=== PATIENT | male | born 1990 | race Caucasian/White ===

== ENCOUNTER 2016-07-01 09:01 | Emergency (ER) | payer MEDICARE, MEDICAID ==
[~2016-07-01] VITALS: Ht 188 cm; Wt 77.1 kg
[~2016-07-01 09:01] MED LIST: DEXT15CA2 PO; FLUO20CA25 PO; HYDR-3714 PO; MUPI1OIN5 NS; OMEP20TA2 PO
[2016-07-01] MEDS ORDERED: FLUO20CA42 PO (09:22)
[2016-07-01] MEDS ORDERED: MMT17NA NS (09:22)
--- NOTE | 2016-07-01 09:49 | Diagnostic Imaging Report ---
INDICATION: Left foot pain. TECHNIQUE: AP, oblique, and lateral views of the left foot were obtained. FINDINGS: There are tiny calcifications lateral to the cuboid which are of uncertain age and may be tiny avulsions or developmental change. There is no other definite bony abnormality. IMPRESSION: Small calcifications are present lateral to the cuboid. These may represent tiny avulsions but are of uncertain age. These could be developmental. Correlate for point tenderness in this area. Dictated by: Dictated on workstation # [id number]
--- NOTE | 2016-07-01 10:40 | ED Lower Extremity ---
General Chief Complaint: Lower Extremity Stated Complaint: FALL/LEFT FOOT INJURY Nursing Triage Note: ARRIVED VIA AMB LIMPING. STATES HE FELL LAST NIGHT TAKING OUT THE TRASH CAUSING PAIN TO LEFT ANKLE AND FOOT. Nursing Sepsis Screen: No Definite Risk Source: patient, family Exam Limitations: no limitations History of Present Illness Time seen by provider: 09:30 Initial Comments Here with report of left ankle pain after tripping going up a step today. He caught himself with his left foot and felt pain. He is unable to walk on the left foot. Complains of swelling to the lateral aspect. No abrasions or lacerations noted. No other injuries noted or reported. Onset: this morning Severity: moderate Pain/Injury Location: left foot, left ankle Method of Injury: direct blow, twisted Modifying Factors: Improves With Immobilization, Worse With Movement Allergies and Home Medications Allergies Uncoded Allergies: PCN (Allergy, Unknown, 02/28/14) Home Medications D-Amphetamine Sulfate 15 Mg Capsule.sa, 15 MG PO DAILY, (Reported) Fluoxetine HCl 20 Mg Capsule, 20 MG PO DAILY, (Reported) Mometasone Furoate 17 Gm Naspr, 17 GM NS, (Reported) Constitutional: see HPI, No chills, No fever Cardiovascular: no symptoms reported Gastrointestinal: no symptoms reported Musculoskeletal: see HPI, joint pain, joint swelling, muscle pain Skin: no symptoms reported Past Ggtyitm-Eegjzl-Lpzwsz Hx Patient Social History Alcohol Use: Denies Use Recreational Drug Use: No Smoking Status: Never a Smoker Recent Foreign Travel: No Contact w/Someone Who Travel: No Recent Infectious Disease Expo: No Recent Hopitalizations: No Immunizations Up To Date Date of Influenza Vaccine: Dec 18, 2012 Surgeries HX Surgeries: Yes Surgeries: Tonsillectomy Respiratory Hx Respiratory Disorders: No Cardiovascular Hx Cardiac Disorders: No Neurological Hx Neurological Disorders: No Genitourinary Hx Genitourinary Disorders: No Gastrointestinal Hx Gastrointestinal Disorders: No Musculoskeletal Hx Musculoskeletal Disorders: No Endocrine Hx Endocrine Disorders: No HEENT HX ENT Disorders: No Psychosocial Hx Psychiatric Problems: Yes (ASBURGERS) Behavioral Health Disorders: ADD/ADHD, ODD Blood Transfusions Hx Blood Disorders: No Reviewed Nursing Assessment Reviewed/Agree w Nursing PMH: Yes Physical Exam Vital Signs Vital Sign - Last 12Hours 07/01/16 09:15 Temp 98.0 Pulse 78 Resp 18 B/P (MAP) 117/92 Pulse Ox 98 Capillary Refill : Less Than 3 Seconds General Appearance: WD/WN, no apparent distress Cardiovascular: regular rate, rhythm, no murmur Respiratory: lungs clear, normal breath sounds Ankles: left ankle pain, left ankle soft tissue tenderness, left ankle swelling , left ankle other (all findings on the lateral aspect) Feet: left foot pain, left foot soft tissue tenderness, left foot swelling, left foot other (all findings on the lateral aspect) Neurologic/Psychiatric: alert, oriented x 3 Skin: warm/dry, ecchymosis (lateral ankle/foot) Progress/Results/Core Measures Results/Orders My Orders Orders - OLE RAI MD Ankle, Left, 3 Views (07/01/16 09:24) Foot, Left, 3 Views (07/01/16 09:24) Vital Signs/I&O Vital Sign - Last 12Hours 07/01/16 09:15 Temp 98.0 Pulse 78 Resp 18 B/P (MAP) 117/92 Pulse Ox 98 Blood Pressure Mean: 100 Progress Note : Progress Note Seen and evaluated. X-ray of left foot and ankle. Patient declines pain medicine. Crutches and boot to left foot ordered. Discharged home with return precautions. Mother verbalize understanding instructions and agreement with plan. Diagnostic Imaging Diagonstic Imaging: Xray Plain Films/CT/US/NM/MRI: other (foot) Comments VIA [facility]. [place], [place] NAME: DARYL DELAROSA [facility] REC#: [id number] PT STATUS: REG ER : 1990 PHYSICIAN: OLE RAI MD ADMIT DATE: 07/01/16/ER Draft Date of Exam:07/01/16 FOOT, LEFT, 3 VIEWS INDICATION: Left foot pain. TECHNIQUE: AP, oblique, and lateral views of the left foot were obtained. FINDINGS: There are tiny calcifications lateral to the cuboid which are of uncertain age and may be tiny avulsions or developmental change. There is no other definite bony abnormality. IMPRESSION: Small calcifications are present lateral to the cuboid. These may represent tiny avulsions but are of uncertain age. These could be developmental. Correlate for point tenderness in this area. Dictated on workstation # [id number] Dict: 07/01/16 0944 Trans: 07/01/16 0949 [id number] Interpreted by: LUX PADILLA MD Electronically signed by: Departure Impression Impression: Primary Impression: Strain of ankle and foot Qualified Codes: S96.912A - Strain of unspecified muscle and tendon at ankle and foot level, left foot, initial encounter Additional Impression: Closed avulsion fracture of metatarsal bone of left foot Qualified Codes: S92.302A - Fracture of unspecified metatarsal bone(s), left foot, initial encounter for closed fracture Disposition: HOME, SELF-CARE Condition: Stable Departure-Patient Inst. Decision time for Depature: 10:40 Referrals: NIGHAT RAZA MD, RICHARD A DO (PCP/Family) Primary Care Physician CHRIS WHITEHEAD MD, ROBERT F DO ZAFUTA, MICHAEL P MD Patient Instructions: Ankle Sprain (DC) Add. Discharge Instructions: All discharge instructions reviewed with patient and/or family. Voiced understanding. You may use ice packs to area of concern 20 minutes per hour as needed for the next couple days. Use walking boot and crutches as needed for the next few days. Follow-up with orthopedic physician of your choice if not improved over the next few days. Return for worse pain, swelling, numbness or tingling to the feet or other concerns as needed. You may take ibuprofen 600 mg every 8 hours as needed for pain. You may take Tylenol 1000 mg every 8 hours as needed for pain as well. OLE RAI MD Jul 01, 2016 10:40
[2016-07-01 11:26] VITALS: BP 117/92
--- NOTE | 2016-07-04 09:22 | Diagnostic Imaging Report ---
INDICATION: Left ankle injury 3 views of the left ankle show no fracture, dislocation or other acute abnormalities. IMPRESSION: Negative left ankle Dictated by: Dictated on workstation # [id number]
== END 2016-07-01 11:26 | disposition home or self-care (01) ==
LOC: EDUNIT# 09:01 → ER 09:03
DX: S92.812A Other fracture of left foot, initial encounter for closed fracture (principal); S96.912A Strain of unspecified muscle and tendon at ankle and foot level, left foot, initial encounter; W10.9XXA Fall (on) (from) unspecified stairs and steps, initial encounter; Y92.009 Unspecified place in unspecified non-institutional (private) residence as the place of occurrence of the external cause; Y99.8 Other external cause status
CPT/HCPCS: 73610; 73630; 99283

== ENCOUNTER 2018-02-21 05:41 | Outpatient (CLI) | payer MEDICARE, MEDICAID ==
[~2018-02-21] VITALS: Ht 188 cm; Wt 80.7 kg
[~2018-02-21 05:41] MED LIST changes: +FLUO20CA42 PO; +MMT17NA NS
[2018-02-21] MEDS ORDERED: MONT10TA21 PO (11:57)
[2018-02-21] MEDS ORDERED: DEXT10CA2 PO (11:57)
== END 2018-02-21 12:00 | disposition home or self-care (01) ==
LOC: PREOP 05:41
PROVIDERS: ATTEND Surgery
DX: Z01.818 Encounter for other preprocedural examination (principal)

== ENCOUNTER 2018-02-28 09:55 | Day surgery (SDC) | payer MEDICARE, MEDICAID ==
[~2018-02-28] VITALS: Ht 188 cm; Wt 80.7 kg
[~2018-02-28 09:55] MED LIST changes: +DEXT10CA2 PO; +MONT10TA21 PO
--- OUTSIDE RECORDS SUMMARY | 2018-02-28 09:59 | XMS REPORT ---
Author Author JIL JONES Organization [facility] IN [facility] Address [address] [place] [address] Care Team Providers Care Bounty Hunter Name Role Phone JIL JONES Unavailable PROBLEMS Type Condition ICD9-CM Code OSW14-SC Code Onset Dates Condition Status SNOMED Code Problem Attention deficit disorder of childhood without mention of hyperactivity 314.00 Active 06847757 ALLERGIES Substance Reaction Event Type Date Status Penicillins diarrhea Non Drug Allergy Feb, Active SOCIAL HISTORY No smoking Hx information available PLAN OF CARE Activity Details Follow Up prn Reason: VITAL SIGNS Height 72 in 2016-02-28 Weight 173.0 lbs 2016-02-28 Temperature 98.4 degrees Fahrenheit 2016-02-28 Heart Rate 80 bpm 2016-02-28 Respiratory Rate 20 2016-02-28 BMI 23.46 kg/m2 2016-02-28 Blood pressure systolic 104 mmHg 2016-02-28 Blood pressure diastolic 68 mmHg 2016-02-28 MEDICATIONS Medication Instructions Dosage Frequency Start Date End Date Duration Status Naproxen 500 MG Orally every 12 hrs 1 tablet as needed 12h Feb, Feb, 10 days Active Nasonex 50 MCG/ACT Nasally Once a day 2 sprays in each nostril 24h Mar, 30 day(s) Active Dexedrine Spansule 15 mg orally- Ledy to sign for Huerter once a day - 1 capsule Feb, Active Clindamycin HCl 150 MG Orally every 6 hrs 2 capsules 6h Feb, Feb, 7 days Active Prozac 20 MG Orally Once a day 1 capsule in the morning 24h Active RESULTS No Results PROCEDURES Procedure Date Ordered Related Diagnosis Body Site [facility] VISIT ESTABLISHED PATIENT Feb 28, 2016 Office Visit, Est Pt., Level 3 Feb 28, 2016 IMMUNIZATIONS No Known Immunizations
[2018-02-28 10:00] VITALS: BP 126/85
--- OUTSIDE RECORDS SUMMARY | 2018-02-28 10:00 | XMS REPORT | Continuity of Care Document ---
Author Author [facility] Address Unknown Phone Unavailable Allergies Active Description Code Type Severity Reaction Onset Reported/Identified Relationship to Patient Clinical Status Yes Penicillins Drug Allergy 12/24/2011 Yes Penicillins Drug Allergy N/A N/A 12/24/2011 Yes PCN PCN Unknown N/ A 02/28/2014 Yes Penicillins [id number] Drug Allergy Mild RASH 02/21/2018 Medications There is no data. Problems Date Dx Coded Attending Type Code Diagnosis Diagnosed By 02/04/2010 299.80 DV ASPERGERS 02/04/2010 311 DEPRESSIVE DISORDER NOS 02/04/2010 314.01 ADHD COMBINED 02/04/2010 299.80 DV ASPERGERS 02/04/2010 311 DEPRESSIVE DISORDER NOS 02/04/2010 314.01 ADHD COMBINED 02/04/2010 299.80 DV ASPERGERS 02/04/2010 311 DEPRESSIVE DISORDER NOS 02/04/2010 314.01 ADHD COMBINED 02/04/2010 WHITE DDS, JOSUE J 299.80 DV ASPERGERS 02/04/2010 WHITE DDS, JOSUE J 311 DEPRESSIVE DISORDER NOS 02/04/2010 WHITE DDS, JOSUE J 314.01 ADHD COMBINED 02/04/2010 JORDYN MARTIN APRN 299.80 DV ASPERGERS 02/04/2010 JORDYN MARTIN APRN 311 DEPRESSIVE DISORDER NOS 02/04/2010 JORDYN MARTIN APRN 314.01 ADHD COMBINED 02/04/2010 JORDYN MARTIN APRN 299.80 DV ASPERGERS 02/04/2010 JORDYN MARTIN APRN 311 DEPRESSIVE DISORDER NOS 02/04/2010 JORDYN MARTIN APRN 314.01 ADHD COMBINED 02/04/2010 299.80 DV ASPERGERS 02/04/2010 311 DEPRESSIVE DISORDER NOS 02/04/2010 314.01 ADHD COMBINED 02/04/2010 SANTOSH 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, KAVIN 299.80 DV ASPERGERS 02/04/2010 SANTOSH MICHAEL KAVIN 311 DEPRESSIVE DISORDER NOS 02/04/2010 KAVIN FROST APRN 314.01 ADHD COMBINED 05/07/2010 296.32 MO DEPRESSIVE RECURRENT MODERATE 05/07/2010 296.32 MO DEPRESSIVE RECURRENT MODERATE 05/07/2010 296.32 MO DEPRESSIVE RECURRENT MODERATE 05/07/2010 JOSUE TRONCOSO DDS 296.32 MO DEPRESSIVE RECURRENT MODERATE 05/07/2010 JORDYN MARTIN APRN 296.32 MO DEPRESSIVE RECURRENT MODERATE 05/07/2010 JORDYN MARTIN APRN 296.32 MO DEPRESSIVE RECURRENT MODERATE 05/07/2010 296.32 MO DEPRESSIVE RECURRENT MODERATE 05/07/2010 KAVIN FROST APRN 296.32 MO DEPRESSIVE RECURRENT MODERATE 09/22/2010 299.00 AUTISTIC DISORDER CURRENT OR ACTIVE STATE 09/22/2010 299.00 AUTISTIC DISORDER CURRENT OR ACTIVE STATE 09/22/2010 299.00 AUTISTIC DISORDER CURRENT OR ACTIVE STATE 09/22/2010 JOSUE TRONCOSO DDS 299.00 AUTISTIC DISORDER CURRENT OR ACTIVE STATE 09/22/2010 JORDYN MARTIN APRN 299.00 AUTISTIC DISORDER CURRENT OR ACTIVE STATE 09/22/2010 JORDYN MARTIN APRN 299.00 AUTISTIC DISORDER CURRENT OR ACTIVE STATE 09/22/2010 299.00 AUTISTIC DISORDER CURRENT OR ACTIVE STATE 09/22/2010 KAVIN FROST APRN 299.00 AUTISTIC DISORDER CURRENT OR ACTIVE STATE 12/23/2010 300.02 AN GEN ANXIETY 12/23/2010 300.02 AN GEN ANXIETY 12/23/2010 300.02 AN GEN ANXIETY 12/23/2010 JOSUE TRONCOSO DDS 300.02 AN GEN ANXIETY 12/23/2010 JORDYN MARTIN APRN 300.02 AN GEN ANXIETY 12/23/2010 JORDYN MARTIN APRN 300.02 AN GEN ANXIETY 12/23/2010 300.02 AN GEN ANXIETY 12/23/2010 KAVIN FROST APRN 300.02 AN GEN ANXIETY 09/23/2011 314.00 ADHD INATTENTIVE 09/23/2011 314.00 ADHD INATTENTIVE 09/23/2011 314.00 ADHD INATTENTIVE 09/23/2011 JOSUE TRONCOSO DDS 314.00 ADHD INATTENTIVE 09/23/2011 JORDYN MARTIN APRN 314.00 ADHD INATTENTIVE 09/23/2011 JORDYN MARTIN APRN 314.00 ADHD INATTENTIVE 09/23/2011 314.00 ADHD INATTENTIVE 09/23/2011 KAVIN FROST APRN 314.00 ADHD INATTENTIVE 03/20/2013 MERRICK CHRISTIANSON, VICTORINA Gutierrez Ot 211.4 BENIGN NEOPL RECTUM/ANUS 03/20/2013 MERRICK CHRISTIANSON, VICTORINA Gutierrez Ot V18.51 FAMILY HISTORY, COLONIC POLYPS 02/28/2014 MERRICK CHRISTIANSON, VICTORINA Gutierrez Ot 211.4 BENIGN NEOPL RECTUM/ANUS 02/28/2014 MERRICK CHRISTIANSON, VICTORINA Gutierrez Ot 706.2 SEBACEOUS CYST 07/01/2016 MERRICK CHRISTIANSON, VICTORINA Gutierrez Ot V72.84 EXAM PRE-OPERATIVE NOS 07/01/2016 MERRICK CHRISTIANSON, VICTORINA Gutierrez Ot V72.84 EXAM PRE-OPERATIVE NOS 07/01/2016 MERRICK CHRISTIANSON, VICTORINA Gutierrez Ot V72.84 EXAM PRE-OPERATIVE NOS 07/01/2016 OLE RAI MD, Ot S92.812A OTHER FRACTURE OF LEFT FOOT, INIT 07/01/2016 OLE RAI MD Ot S96.912A STRAIN OF UNSP MSL/TND AT ANK/FT LEVEL, 07/01/2016 OLE RAI MD, Ot S99.922A UNSPECIFIED INJURY OF LEFT FOOT, INITIAL 07/01/2016 OLE RAI MD Ot W10.9XXA FALL (ON) (FROM) UNSPECIFIED STAIRS AND 07/01/2016 OLE RAI MD Ot Y92.[address] IN [facility] 07/01/2016 OLE RAI MD Ot Y99.8 OTHER EXTERNAL CAUSE STATUS 07/03/2016 OLE RAI MD Ot S92.812A OTHER FRACTURE OF LEFT FOOT, INIT 07/03/2016 OLE RAI MD Ot S96.912A STRAIN OF UNSP MSL/TND AT ANK/FT LEVEL, 07/03/2016 OLE RAI MD Ot S99.922A UNSPECIFIED INJURY OF LEFT FOOT, INITIAL 07/03/2016 OLE RAI MD Ot W10.9XXA FALL (ON) (FROM) UNSPECIFIED STAIRS AND 07/03/2016 OLE RAI MD Ot Y92.[address] [facility] 07/03/2016 CECELIA CHRISTIANSON, OLE Hancock Ot Y99.8 OTHER EXTERNAL CAUSE STATUS 02/21/2018 MERRICK CHRISTIANSON, VICTORINA Gutierrez Ot Z01.818 ENCOUNTER FOR OTHER PREPROCEDURAL EXAMIN 02/22/2018 VICTORINA SIN MD Ot Z01.818 ENCOUNTER FOR OTHER PREPROCEDURAL EXAMIN Procedures Code [place] [address] PSYCH IND W/MED CK 20 01/01/2012 Results There is no data. Encounters ACCT No. Visit Date/Time Discharge Status Pt. Type Provider Facility Loc./Unit Complaint [id number] 03/13/2014 11:40:00 03/13/2014 23:59:59 CLS Outpatient KAVIN FROST APRN [id number] 09/08/2013 13:41:00 09/08/2013 23:59:59 CLS Outpatient MARIO RODRIGUEZ JORDYN EPHRAIM [id number] 06/09/2013 13:45:00 06/09/2013 23:59:59 CLS Outpatient MARIO RODRIGUEZ JORDYN EPHRAIM [id number] 02/17/2013 00:00:00 02/17/2013 23:59:59 CLS Outpatient JOSUE TRONCOSO DDS [id number] 03/25/2012 09:40:00 03/25/2012 23:59:59 CLS Outpatient [id number] 12/24/2011 09:49:00 12/24/2011 23:59:59 CLS Outpatient [id number] 09/27/2012 13:51:00 Document Registration [id number] 06/23/2012 09:34:00 Document Registration [id number] 02/21/2018 05:41:00 02/21/2018 12:00:00 DIS Outpatient VICTORINA SIN MD [facility] PREOP COLONOSCOPY [id number] 07/01/2016 09:03:00 07/01/2016 11:26:00 DIS Emergency OLE RAI MD [facility] ER FALL/LEFT FOOT INJURY [id number] 02/28/2014 08:43:00 02/28/2014 13:35:00 DIS Outpatient VICTORINA SIN MD [facility] SDC RECTAL BLEEDING; HX POLYPS; SEBACEOUS CYST [id number] 02/22/2014 14:46:00 02/22/2014 23:59:59 CLS Outpatient VICTORINA SIN MD [facility] PREOP RECTAL BLEEDING; HX POLYPS; SEBACEOUS CYST [id number] 02/21/2014 06:08:00 02/21/2014 23:59:59 CLS Outpatient VICTORINA SIN MD [facility] PREOP RECTAL BLEEDING; HX POLYPS [id number] 03/20/2013 07:01:00 03/20/2013 10:32:00 DIS Outpatient VICTORINA SIN MD [facility] SDC BLOOD IN STOOL [id number] 03/16/2013 09:28:00 03/16/2013 23:59:59 CLS Outpatient VICTORINA SIN MD [facility] PREOP BLOOD IN STOOL [id number] 02/28/2018 11:30:00 PEN Preadmit VICTORINA SIN MD [facility] ENDO BLOOD IN STOOLS/HX POLYPS [id number] 02/28/2014 08:43:32 ACT Document Registration
[2018-02-28] MEDS ORDERED: NS IV 500 ML 500 ML IV PRN (10:06)
[2018-02-28] MEDS ORDERED: NS IV 500 ML 500 ML ONE (10:10)
[2018-02-28] MEDS ORDERED: MIDAZOLAM 2 MG/2 ML (VERSED) VIAL IVP ONE (10:15)
[2018-02-28] MEDS ORDERED: fentaNYL INJECTION 100 MCG/2 ML AMP IVP ONE (10:15)
[2018-02-28] MEDS ORDERED: fentaNYL INJECTION 100 MCG/2 ML AMP ONE (10:21)
[2018-02-28] MEDS ORDERED: MIDAZOLAM 2 MG/2 ML (VERSED) VIAL ONE ×5 (10:21→11:12)
--- NOTE | 2018-02-28 10:58 | Conscious Sedation/ASA ---
Conscious Sedation Pre-Proced Time 10:58 ASA Score 2 For ASA 3 and 4: Consider anesthesia and medical clearance. Also, for patients with a history of failed moderate sedation consider anesthesia. Airway Lungs Heart ASA score ASA 1: a normal healthy patient ASA 2: a patient with a mild systemic disease (mid diabetes, controlled hypertension, obesity ASA 3: a patient with a severe systemic disease that limits activity (angina , COPD, prior Myocardial infarction) ASA 4: a patient with an incapacitating disease that is a constant threat to life (CHF, renal failure) ASA 5: a moribund patient not expected to survive 24 hrs. (ruptured aneurysm) ASA 6: a declared brain patient whose organs are being harvested. For emergent operations, add the letter E after the classification Mallampati Classification Grade 2 Sedation Plan Discussed options with patient/fam The patient is an appropriate candidate to undergo the planned procedure, sedation, and anesthesia. The patient immediately re-assessed prior to indication. VICTORINA SIN MD Feb 28, 2018 10:58
--- NOTE | 2018-02-28 10:58 | History & Physicial ---
History of Present Illness History of Present Illness Reason for visit/HPI To undergo colonoscopy to investigate blood in the stools and on the basis of a family and personal history of colon polyps Date of Admission 02/28/18 Date Seen by a Provider: Feb 28, 2018 Time Seen by a Provider: 10:56 I consulted on this patient on 02/28/18 10:55 Attending Physician Victorina Sin MD Admitting Physician Israel Keyes DO Consult Allergies and Home Medications Allergies Coded Allergies: Penicillins (Verified Allergy, Mild, RASH, 02/21/18) Home Medications Dextroamphetamine Sulfate 10 Mg Capsule.er, 10 MG PO DAILY, (Reported) Fluoxetine HCl 20 Mg Capsule, 20 MG PO DAILY, (Reported) Montelukast Sodium 10 Mg Tablet, 10 MG PO DAILY, (Reported) Patient Home Medication List Home Medication List Reviewed: Yes Past Wcabnoq-Akylep-Hfmgyd Hx Patient Social History Marrital Status: single Employed/Student: unemployed Alcohol Use: Denies Use Recreational Drug Use: No Smoking Status: Never a Smoker Recent Foreign Travel: No Contact w/other who traveled: No Recent Hopitalizations: No Recent Infectious Disease Expo: No Immunizations Up To Date Date of Influenza Vaccine: Dec 20, 2017 Seasonal Allergies Seasonal Allergies: Yes Surgeries Yes Tonsillectomy Respiratory No Cardiovascular No Neurological No Reproductive System Hx Reproductive Disorders: No Sexually Transmitted Disease: No HIV/AIDS: No Gastrointestinal Yes Chronic Constipation, Polyps Musculoskeletal No Endocrine History of Endocrine Disorders: No HEENT History of HEENT Disorders: No Loss of Vision: Denies Hearing Impairment: Denies Psychosocial Behavioral Health Disorders: ADD/ADHD, Anxiety, ODD Blood Transfusions Adverse Reaction to a Blood Tr: No (N/A) Review of Systems Constitutional: no symptoms reported EENTM: no symptoms reported Respiratory: no symptoms reported Cardiovascular: no symptoms reported Gastrointestinal: see HPI Genitourinary: no symptoms reported Musculoskeletal: no symptoms reported Skin: no symptoms reported Psychiatric/Neurological: No Symptoms Reported Physical Exam Vital Signs Vital Signs - First Documented 02/28/18 10:00 Temp 98.9 Pulse 69 Resp 18 B/P (MAP) 126/85 (99) Pulse Ox 94 Capillary Refill : Height, Weight, BMI Height: 6'2.00" Weight: 178lbs. 0.0oz. 80.507691sm; 22.9 BMI Method:Stated General Appearance: No Apparent Distress Neck: Normal Inspection Respiratory: Lungs Clear Cardiovascular: Regular Rate, Rhythm Gastrointestinal: Non Tender, Soft Rectal: Deferred Extremity: Normal Inspection Neurologic/Psychiatric: Alert, Oriented x3 Skin: Warm/Dry Assessment/Plan Assessment and Plan gentleman with a personal history of polyps and a positive family history. Blood in the stools. For colonoscopy. Admission Diagnosis Admission Status: Other (Outpt Proc) VICTORINA SIN MD Feb 28, 2018 10:58
--- NOTE | 2018-02-28 11:37 | Endo Procedure Record ---
Endo Procedure Report Date of Procedure Last Colonoscopy: Yes (UNSURE) Feb 28, 2018 Surgeon (s) VICTORINA SIN MD Post Procedure/Op Diagnosis cluster of 2 mm polyps at the distal rectum Procedure Performed colonoscopy to cecum Hot biopsy and snare polypectomy Description of Procedure Anesthesia Type: Conscious Sedation Specimen(s) collected/removed rectal polyps Description of the Procedure Indication for the procedure: This gentleman was found to have inflammatory polyps in his rectum, that were excised in 2013. He came in for colonoscopy in view of new onset of rectal bleeding. Informed consent was obtained after reviewing the procedure in detail. Description of the procedure: He was placed in left lateral decubitus position and his vital signs were monitored. Conscious sedation was achieved using Versed and fentanyl. Digital rectal examination was unremarkable. The colonoscope was then introduced in the rectum and advanced all the way up to the cecum. It was then withdrawn slowly and the mucosa examined in a systematic fashion. Findings: A cluster of 2 mm polyps, adjacent to each other, at the distal rectum. These were excised using a combination of hot biopsy technique and snaring. The tissue was sent as one specimen. He tolerated the procedure well and was taken back to the nursing area in a stable condition. Impression: Rectal bleeding possibly due to recurrent inflammatory rectal polyps. Histology pending. Copy Copies To 1: SHAYAN BHAKTA XAVIER M MD Feb 28, 2018 11:37
--- NOTE | 2018-02-28 11:38 | Discharge Inst-Simple/Standard ---
Discharge Inst-Standard Discharge Medications New, Converted or Re-Newed RX: Other Patient Instructions/Follow Up Plan of Care/Instructions/FU: follow-up with me in a week to discuss histology results and further management Activity as Tolerated: Yes Discharge Diet: No Restrictions VICTORINA SIN MD Feb 28, 2018 11:38
[2018-02-28 11:50] VITALS: BP 111/71
[2018-02-28 12:20] VITALS: BP 124/87
[2018-02-28 12:45] VITALS: BP 124/87
== END 2018-02-28 12:45 | disposition home or self-care (01) ==
LOC: ENDO 09:55
PROVIDERS: ATTEND Surgery
DX: K62.1 Rectal polyp (principal); Z88.0 Allergy status to penicillin; Z79.899 Other long term (current) drug therapy; K59.09 Other constipation; K62.5 Hemorrhage of anus and rectum; F90.9 Attention-deficit hyperactivity disorder, unspecified type; F41.9 Anxiety disorder, unspecified; Z83.71 Family history of colonic polyps

== ENCOUNTER → 2018-06-10 | Outpatient (CLI) | payer MEDICARE, MEDICAID | LOC: LAB 12:30 | PROVIDERS: ATTEND Family Medicine | DX: B35.1 Tinea unguium (principal) | CPT/HCPCS: 87220 ==

== ENCOUNTER → 2021-07-16 | Outpatient (CLI) | payer MEDICAID, MEDICARE ==
[~2021-07-16] MED LIST changes: +DEXT10CA PO; -DEXT10CA2 PO; -MMT17NA NS; +MOME17SP4 NS
[2021-07-16 13:15] LABS: AMPHETAMINE SCREEN, URINE NEGATIVE (NEGATIVE); BARBITURATE SCREEN URINE NEGATIVE (NEGATIVE); BENZODIAZEPINES SCREEN URINE NEGATIVE (NEGATIVE); CANNABINOID SCREEN, URINE NEGATIVE (NEGATIVE); COCAINE SCREEN URINE NEGATIVE (NEGATIVE); METHADONE STAT NEGATIVE (NEGATIVE); OPIATE SCREEN URINE NEGATIVE (NEGATIVE); OXYCODONE STAT NEGATIVE (NEGATIVE); PROPOXYPHENE STAT NEGATIVE (NEGATIVE); TRICYCLIC ANTIDEPRESSANTS SCRE NEGATIVE (NEGATIVE)
== END ==
LOC: LAB 12:30
PROVIDERS: ATTEND Family Medicine
DX: F90.9 Attention-deficit hyperactivity disorder, unspecified type (principal)
CPT/HCPCS: 80306

== ENCOUNTER → 2021-08-15 | Outpatient (CLI) | payer MEDICARE ==
[2021-08-15 22:08] LABS: AMPHETAMINES URINE QUAL DS Negative (Negative); BARBITURATES URINE QUAL DS Negative (Negative); BENZODIAZEPINE URINE QUAL DS Negative (Negative)
== END ==
LOC: LAB
PROVIDERS: ATTEND Family Medicine
DX: Z01.89 Encounter for other specified special examinations (principal)
CPT/HCPCS: 36415; 80307